=== PATIENT | female | born 1985 | race Asian ===

== ENCOUNTER 2020-08-14 23:56 | Emergency (ER) | payer OTHER ==
[2020-08-15] MEDS ORDERED: NORMAL SALINE 1000 ML 1,000 ML IV ONE (00:29)
[2020-08-15] MEDS ORDERED: ONDANSETRON HCL INJ/PF 4 MG/2 ML SDV IV ONE (00:29)
--- NOTE | 2020-08-15 00:34 | ER Document Report ---
ED Medical Screen (RME) - General Stated Complaint: VOMITTING CHEST PRESSURE Time Seen by Provider: 08/15/20 00:17 Primary Care Provider: JOHNNY ESPINAL DO [Primary Care Provider] - Follow up as needed Notes: Patient states she was eating dinner this evening and started to have difficulty breathing. Patient states she felt as though the food got stuck in her throat. Patient states that she forced herself to vomit by gagging herself. Patient states that she did vomit the food up and then 30 minutes later vomited again. Patient complains of some shortness of breath and dizziness at this time. Patient denies any cardiac history although reports a history of acid reflux and seasonal allergies. Patient has tolerated oral liquids since the episode where she felt like the food got stuck. I have greeted and performed a rapid initial assessment of this patient. A comprehensive ED assessment and evaluation of the patient, analysis of test results and completion of the medical decision making process will be conducted by additional ED providers. Physical Exam - Vital signs Vitals: Temp Pulse Resp BP Pulse Ox 97.9 F 99 20 125/65 96 08/15/20 00:19 08/15/20 00:19 08/15/20 00:19 08/15/20 00:19 08/15/20 00:19 - Respiratory Respiratory status: No respiratory distress Chest status: Tender Course - Vital Signs Vital signs: Temp Pulse Resp BP Pulse Ox 97.9 F 99 20 125/65 96 08/15/20 00:19 08/15/20 00:19 08/15/20 00:19 08/15/20 00:19 08/15/20 00:19 Doctor's Discharge - Discharge Referrals: JOHNNY ESPINAL DO [Primary Care Provider] - Follow up as needed
[2020-08-15 01:29] LABS: ABSOLUTE EOSINOPHILS # (AUTO) 0.1 10^3/uL (0.0-0.6); ABSOLUTE LYMPHOCYTES (AUTO) 0.9 10^3/uL (0.5-4.7); ABSOLUTE MONOCYTES (AUTO) 0.4 10^3/uL (0.1-1.4); BASOPHILS % (AUTO) 0.3 % (0-2); EOSINOPHILS % (AUTO) 1.2 % (0-6); HEMATOCRIT 38.2 % (36.0-47.0); HEMOGLOBIN 12.3 g/dL (12.0-15.5); LYMPHOCYTES % (AUTO) 8.2 % (13-45); MEAN CORPUSCULAR HEMOGLOBIN 24.8 pg (27.0-33.4); MEAN CORPUSCULAR HGB CONC 32.2 g/dL (32.0-36.0); MEAN CORPUSCULAR VOLUME 77 fl (80-97); MONOCYTES % (AUTO) 3.5 % (3-13); PLATELET COUNT 270 10^3/uL (150-450); RED BLOOD COUNT 4.97 10^6/uL (3.72-5.28); SEGMENTED NEUTROPHILS % (AUTO) 86.8 % (42-78); TOTAL CELLS COUNTED % (AUTO) 100 %; WHITE BLOOD COUNT 11.5 10^3/uL (4.0-10.5)
--- NOTE | 2020-08-15 01:41 | RADIOLOGY REPORT (SQ) ---
EXAM DESCRIPTION: X-ray, single view of the chest CLINICAL HISTORY: 35 years Female, cp, dizziness COMPARISON: None. FINDINGS: Lungs: Lungs are clear. No pneumonia or edema. No pneumothorax or pleural effusion. Mediastinum: Cardiac and mediastinal silhouette are normal. Bones: Osseous structures are normal. IMPRESSION: Unremarkable single view of the chest. No acute process.
[2020-08-15 01:49] LABS: ALBUMIN 4.4 g/dL (3.5-5.0); ALKALINE PHOSPHATASE 75 U/L (38-126); ANION GAP 10 (5-19); ASPARTATE AMINO TRANSFERASE 28 U/L (14-36); BILIRUBIN,DIRECT 0.1 mg/dL (0.0-0.4); BILIRUBIN,TOTAL 0.3 mg/dL (0.2-1.3); BLOOD UREA NITROGEN 13 mg/dL (7-20); CALCIUM 9.1 mg/dL (8.4-10.2); CARBON DIOXIDE 26 mmol/L (22-30); CHLORIDE 102 mmol/L (98-107); GLUCOSE 123 mg/dL (75-110); TOTAL PROTEIN 7.4 g/dL (6.3-8.2)
[2020-08-15 01:51] LABS: POTASSIUM 3.9 mmol/L (3.6-5.0)
[2020-08-15] MEDS ORDERED: METOCLOPRAMIDE HCL ORAL SOLN 10 MG/10 ML UDCUP PO ONE (03:39)
[2020-08-15] MEDS ORDERED: MAG HYDROX/AL HYDROX/SIMETH SUSP 30 ML UDCUP PO ONE (03:39)
[2020-08-15] MEDS ORDERED: LIDOCAINE 2% VISCOUS SOLN 15 ML UDCUP PO ONE (03:39)
--- NOTE | 2020-08-15 03:44 | ER Document Report ---
ED GI/ - General Chief Complaint: Abdominal Pain Stated Complaint: VOMITTING CHEST PRESSURE Time Seen by Provider: 08/15/20 00:17 Notes: Patient is a 35-year-old female that comes emergency department for chief complaint of an episode where she was eating and she felt the food got stuck, she states she had discomfort, she states that she felt like it was making her have a hard time breathing, she states that she put her finger down her throat and gagging herself, she states shortly after this she vomited. She states she vomited the food particles including sausage, shrimp, and rice. She states she vomited a lot of food and she is unsure if there was one specific food particle that caused it. She has been able to drink fluids since that time without any difficulty, she states that she still has the sensation that something is stuck in her throat but she denies any pain. She admits she has had problems like this that have been worsening for several months, she already has an endoscopy scheduled in a roughly a week with gastroenterology, she has a history of acid reflux that has been severe since her over the past year. She is not currently (10-month status post ). She denies any medical history otherwise. She denies smoking, alcohol, she reports moderate amount of caffeine. - Related Data Allergies/Adverse Reactions: No Known Allergies Allergy (Unverified 08/15/20 02:52) Home Medications: flonase, zyrtec Past Medical History - General Information source: Patient - Social History Smoking Status: Never Smoker Frequency of alcohol use: None Drug Abuse: None Lives with: Family Family History: Reviewed & Not Pertinent GI Medical History: Reports: Hx Gastroesophageal Reflux Disease Past Surgical History: Reports: Hx Section - Immunizations Immunizations up to date: Yes Hx Diphtheria, Pertussis, Tetanus Vaccination: Yes Review of Systems - Review of Systems Constitutional: No symptoms reported EENT: No symptoms reported Cardiovascular: No symptoms reported Respiratory: No symptoms reported Gastrointestinal: See HPI Genitourinary: No symptoms reported Female Genitourinary: No symptoms reported Musculoskeletal: No symptoms reported Skin: No symptoms reported Hematologic/Lymphatic: No symptoms reported Neurological/Psychological: No symptoms reported Physical Exam - Vital signs Vitals: Temp Pulse Resp BP Pulse Ox 97.9 F 99 20 125/65 96 08/15/20 00:19 08/15/20 00:19 08/15/20 00:19 08/15/20 00:19 08/15/20 00:19 - Notes Notes: GENERAL: Alert, interacts well. No acute distress. HEAD: Normocephalic, atraumatic. EYES: Pupils equal, round, and reactive to light. Extraocular movements intact. ENT: Oral mucosa moist, tongue midline. Oropharynx unremarkable. Airway patent. NECK: Full range of motion. Supple. Trachea midline. No lymphadenopathy. LUNGS: Clear to auscultation bilaterally, no wheezes, rales, or rhonchi. No respiratory distress. Non-tender chest wall. HEART: Regular rate and rhythm. No murmur ABDOMEN: Soft, non-tender. Non-distended. EXTREMITIES: Moves all 4 extremities spontaneously. No edema, normal radial and dorsalis pedis pulses bilaterally. No cyanosis. BACK: no cervical, thoracic, lumbar midline tenderness. No saddle anesthesia, normal distal neurovascular exam. NEUROLOGICAL: Alert and oriented x3. Normal speech. PSYCH: Normal affect, normal mood. SKIN: Warm, dry, normal turgor. No rashes or lesions noted. Course - Re-evaluation Re-evalutation: Patient with history very suggestive of food bolus/foreign body causing obstruc tion in the esophagus which patient then cleared. She drink fluids for me at bedside without any difficulty or any vomiting, she was then given GI cocktail which did significantly improve her symptoms. She has been able to tolerate p.o. otherwise as well without any difficulty. I do believe the patient cleared the obstruction completely based on her evaluation. I did review work-up from triage including chest x-ray, EKG, laboratory work-up and this is unremarkable with no concerning findings. Patient already has an endoscopy scheduled with gastroenterology, she is already prescribed medications for esophagitis/reflux which she has not started taking yet, however I discussed with her and she requested prescription for me to take as well, she was given Carafate. I discussed precautions, close follow-up, and return details at length. Patient states appreciation and agreement. Stable and well-appearing at the time of discharge. - Vital Signs Vital signs: Temp Pulse Resp BP Pulse Ox 98.0 F 86 16 108/60 97 08/15/20 05:47 08/15/20 05:47 08/15/20 05:47 08/15/20 05:47 08/15/20 05:47 - Laboratory Result Diagrams: 08/15/20 01:05 08/15/20 01:05 Laboratory results interpreted by me: 08/15/20 08/15/20 01:05 01:05 WBC 11.5 H MCV 77 L MCH 24.8 L RDW 16.0 H Lymph % (Auto) 8.2 L Absolute Neuts (auto) 10.0 H Seg Neutrophils % 86.8 H Glucose 123 H - EKG Interpretation by Me Additional EKG results interpreted by me: EKG shows sinus rhythm at a rate of 96, normal axis, QTC of 476, no T wave inversions or ST segment changes in consecutive leads Discharge - Discharge Clinical Impression: Esophageal abnormality Vomiting Qualifiers: Vomiting type: unspecified Vomiting Intractability: non-intractable Nausea pre sence: with nausea Qualified Code(s): R11.2 - Nausea with vomiting, unspecified Condition: Stable Disposition: HOME, SELF-CARE Additional Instructions: Your tests do not show any concerning findings tonight. Based on your evaluation I believe that you have abrasion/irritation/injury to the esophagus from the food but I do not believe that you have an obstruction at this time. I recommend the Carafate, bland foods, and close follow-up with your gastroenterology. Make sure that you cut up any foods that could get stuck. Avoid caffeine, alcohol, smoking, spicy food, NSAIDs. Come back if you are worse including if food becomes stuck and you cannot swallow, if pain becomes very severe, if you have repeated vomiting, or for any other concerning or worsening symptoms. Prescriptions: Sucralfate [Carafate 1 gm Tablet] 1 gm PO QID #20 tablet
[2020-08-15 05:48] VITALS: BP 108/60
--- NOTE | 2020-08-15 09:13 | EKG REPORT ---
SEVERITY:- BORDERLINE ECG - SINUS RHYTHM IVCD : Confirmed by: Santosh Martinez MD 15-Aug-2020 09:12:38
== END 2020-08-15 06:00 | disposition home or self-care (01) ==
LOC: ER 23:56
DX: K22.8 Other specified diseases of esophagus (principal); R11.2 Nausea with vomiting, unspecified; R10.9 Unspecified abdominal pain; R07.9 Chest pain, unspecified
CPT/HCPCS: 93005; 99285; 96361; 96374; 36415; 84703; 85025; 80053; 84484; 71045; 93010; J3490; J2405; J7030

== ENCOUNTER 2020-08-27 07:38 | Day surgery (SDC) | payer OTHER ==
[~2020-08-27 07:38] MED LIST: PROPOFOL INJ 200 MG/20 ML VIAL IV ONE
[2020-08-27 10:59] VITALS: BP 133/76
--- NOTE | 2020-08-27 11:43 | Operative Report ---
Operative Report DATE OF SURGERY: 08/27/20 Operative Report: The risk, benefits and alternatives of the procedure including the risks of bleeding, perforation requiring surgery have been explained to the patient in detail and informed consent has been obtained. The patient is placed in left, lateral decubital position. Timeout was called. Propofol medication is administered. Rectal examination is done which did not reveal any masses, tears or fissures. An Olympus videoscope was introduced into the patient's rectum. Scope was then carefully advanced all the way to the cecum. Cecum was identified by the usual anatomical landmarks including the ileocecal valve as well as the appendiceal office. Photodocumentation is obtained. Scope was then sequentially pulled back via the various segments of the colon including the ascending colon, hepatic flexure, transverse colon, splenic flexure, descending colon finding to the rectosigmoid portions of the colon. Retroflexion maneuver is performed. The risks benefits and alternatives of the procedure explained to the patient in detail and informed consent is obtained.A GIF Olympus video scope was inserted into the patient's mouth and hypopharynx, the esophagus is identified intubated and insufflated, the scope was then advanced through the esophagus stomach and duodenum, retroflexion maneuver is done ,the esophagus stomach and first and second portions of the duodenum examined PREOPERATIVE DIAGNOSIS: Change of bowel habits. Dysphagia POSTOPERATIVE DIAGNOSIS: Right colon inflammation status post biopsy. Normal terminal ileum. Mild internal hemorrhoids. Gastritis status post biopsy. Esophagitis status post biopsy with possible Schatzki's ring OPERATION: Colonoscopy with biopsy. EGD with biopsy SURGEON: KORINA MORRIS ANESTHESIA: LMAC TISSUE REMOVED OR ALTERED: As noted above. COMPLICATIONS: None. ESTIMATED BLOOD LOSS: None. INTRAOPERATIVE FINDINGS: As noted above. PROCEDURE: Patient tolerated the procedure well. No immediate postprocedure complications are noted. Patient is discharged in good condition. Discharge date 08/27/2020. Discharge diet: Regular. Discharge activity: Regular. 2 to 3-week follow-up to discuss findings. Patient is instructed to call the office or proceed to the emergency room should there be any further problems or questions. Wait on the pathology.
--- OUTSIDE RECORDS SUMMARY | 2020-08-28 14:57 | XMS REPORT ---
:1985 [facility] [place] [address] [place] [id number] Care Team Providers Name Role Phone Joy Attending Clinician Unavailable Hioe Attending Clinician Unavailable Rajeshoe Attending Clinician Unavailable Jacob Lr Attending Clinician Unavailable Allergies, Adverse Reactions, Alerts This patient has no known allergies or adverse reactions. Medications This patient has no known medications. Problems This patient has no known problems. Procedures Procedure Date / Time Performed Performing Clinician Devic e OFFICE/OUTPATIENT VISIT EST 2020-08-12 11:00:00 OFFICE/OUTPATIENT VISIT EST 2019-12-24 16:00:00 OFFICE/OUTPATIENT VISIT EST 2019-02-13 09:30:00 OFFICE/OUTPATIENT VISIT EST 2018-05-01 11:30:00 OFFICE/OUTPATIENT VISIT EST 2017-11-07 10:45:00 PREV VISIT EST AGE 18-39 2017-02-15 09:45:00 Results Test Description Test Time Test Comments Text Results Atomic Results Result Comments TSH 2020-08-12 00:00:00 1.58 COMPREHENSIVE METABOLIC PANEL 2020-08-12 00:00:00 Test Item Value Reference Range Comments CALCIUM (test code = 60896541) 9.4 mg/dL 8.6-10.2 ALKALINE PHOSPHATASE (test code = 19753246) 54 U/L 31-1 25 ALBUMIN/GLOBULIN RATIO (test code = 33297342) 1.6 (calc) 1. 0-2.5 eGFR NON-AFR. NORWEGIAN (test code = 89966175) 113 mL/min/1.73m2 > OR = 60 GLOBULIN (test code = 60718866) 2.8 g/dL (calc) 1.9-3.7 CHLORIDE (test code = 63930751) 106 mmol/L 98-110 BILIRUBIN, TOTAL (test code = 62723457) 0.4 mg/dL 0.2-1.2 BUN/CREATININE RATIO (test code = 23917237) NOT APPLICABLE (calc ) 6-22 CARBON DIOXIDE (test code = 19163280) 26 mmol/L 20-32 SODIUM (test code = 32732813) 140 mmol/L 135-146 PROTEIN, TOTAL (test code = 13082687) 7.2 g/dL 6.1-8.1 ALBUMIN (test code = 73651905) 4.4 g/dL 3.6-5.1 UREA NITROGEN (BUN) (test code = 04448464) 11 mg/dL 7-25 CREATININE (test code = 09889630) 0.66 mg/dL 0.50-1.10 eGFR (test code = 05951353) 131 mL/min/1.73m2 > OR = 60 GLUCOSE (test code = 39600839) 99 mg/dL 65-99 POTASSIUM (test code = 28250549) 4.1 mmol/L 3.5-5.3 ALT (test code = 13487400) 12 U/L 6-29 AST (test code = 44870455) 17 U/L 10-30 CBC (INCLUDES DIFF/PLT)2020-08-12 00:00:00 Test Item Value Reference Range Comments MONOCYTES (test code = 26201702) 6.1 % ABSOLUTE LYMPHOCYTES (test code = 28545173) 1950 cells/uL 850- 3900 HEMATOCRIT (test code = 44565696) 41.6 % 35.0-45.0 ABSOLUTE MONOCYTES (test code = 12627268) 409 cells/uL 200-95 0 PLATELET COUNT (test code = 99729480) 318 Thousand/uL 140-400 EOSINOPHILS (test code = 42618453) 3.7 % ABSOLUTE EOSINOPHILS (test code = 40425985) 248 cells/uL 15-5 00 ABSOLUTE BASOPHILS (test code = 30239099) 20 cells/uL 0-200 WHITE BLOOD CELL COUNT (test code = 6.7 Thousand/uL 3.8-10.8 62329348) BASOPHILS (test code = 32198159) 0.3 % MCH (test code = 20274343) 24.1 pg 27.0-33.0 RDW (test code = 55215774) 14.4 % 11.0-15.0 RED BLOOD CELL COUNT (test code = 83776315) 5.26 Million/uL 3.80 -5.10 LYMPHOCYTES (test code = 99259413) 29.1 % ABSOLUTE NEUTROPHILS (test code = 26065314) 4074 cells/uL 1500 -7800 NEUTROPHILS (test code = 99056393) 60.8 % HEMOGLOBIN (test code = 56542136) 12.7 g/dL 11.7-15.5 MCHC (test code = 91372898) 30.5 g/dL 32.0-36.0 MPV (test code = 60891488) 11.0 fL 7.5-12.5 MCV (test code = 45549718) 79.1 fL 80.0-100.0 TISSUE [id number] 11:03:00 Test Item Value Reference Range Comments A DIAGNOSIS (test code = Benign intradermal nevus. See 40070418) Report Notes. CLINICAL INFORMATION (test D22.9, melanocytic nevi code = 93499795) A SOURCE (test code = Skin Biopsy, right upper 03725596) abdomen Urine \S\2019-02-15 08:15:00 Test Item Value Reference Range Comments Urine (test code = URINEPREG) positive N/A CMP with Estimated [id number] 09:47:00 Test Item Value Reference Range Comments Calcium (test code = 621698) 9.2 mg/dL 8.6-10.2 Est GFR, NonAfrican Iraqi (test code = 517865) >89 mL/min >=60 Total Protein (test code = 074057) 7.2 g/dL 6.1-8.1 Est GFR, (test code = 575787) >89 mL/min > =60 Bilirubin, Total (test code = 936246) 0.4 mg/dL 0.2-1.2 Albumin (test code = 563275) 4.4 g/dL 3.6-5.1 Alkaline Phosphatase (test code = 097637) 38 U/L 33-115 ALT/SGPT (test code = 317378) 16 U/L 6-29 AST/SGOT (test code = 858409) 21 U/L 10-30 Pap, TP Imaging w/ [id number] 10:56:00 Test Item Value Reference Range Comments Source (test code = 417973) Cervical Source: (test code = 251069) Cervical HPV, High Risk (test code = 607170) Not Detected Previous Diagnosis: (test code = 979416) Z01.419 Clinical Information: (test code = 207519) PAP LMP: (test code = 489588) 52431018 Number of Slides/Vials: (test code = 1 Vial Submitted 766295) Assessments Condition Name Status Diagnosis Date Treating Clinici an Other constipation Active Excessive and frequent menstruation with Active regular cycle Dysphagia, pharyngeal phase Active Other fatigue Active Oth allergy status, oth than to drugs and Active biolg substances Allergic rhinitis due to pollen Active Allergic rhinitis due to animal (cat) (dog) Active hair and dander Body mass index (BMI) 24.0-24.9, adult Active Allergic rhinitis due to pollen Active Oth allergy status, oth than to drugs and Active biolg substances Allergic rhinitis due to animal (cat) (dog) Active hair and dander Recurrent oral aphthae Active Oth allergy status, oth than to drugs and Active biolg substances Allergic rhinitis due to pollen Active Allergic rhinitis due to animal (cat) (dog) Active hair and dander Body mass index (BMI) 20.0-20.9, adult Active Allergic rhinitis, unspecified Active Postviral fatigue syndrome Active Tension-type headache, unspecified, not Active intractable Body mass index (BMI) 20.0-20.9, adult Active Encntr for teletype operator exam (general) (routine) w/o Active abn findings Encounter for screening for lipoid disorders Active Encounter for screening for diabetes Active mellitus Encounter for immunization Active Encounters Start End Encounter Admission Attending Care Care Encounter Date/Time Date/Time Type Type Clinicians Facility Department ID 2020-08-12 2020-08-12 Outpatient Joy [facility] Becky [id number] 11:00:00 11:00:00 [facility] [id number] and [id number] Multispecialty [id number] Clini 2019-12-24 2019-12-24 Outpatient Alexx clary [facility] [id number] 16:00:00 16:00:00 Children [id number] s [id number] and [id number] Mult[facility]ialty Clinic, 2019-02-13 2019-02-13 Outpatient Alexx [facility] [id number] 09:30:00 09:30:00 Children [id number] s [id number] and [id number] [facility], 2018-05-01 2018-05-01 Outpatient Alexx clary [facility] [id number] 11:30:00 11:30:00 Children [id number] s [id number] [id number] 2017-11-07 Outpatient Alexx clary [facility] [id number] 10:45:00 10:45:00 Children [id number] s [id number] [facility] [id number] [facility]15 2017-02-15 [facility] [id number] 09:45:00 09:45:00 Adeline, Children [id number] Stuart s [id number] and [id number] [facility] Social History This patient has no known social history. Vital Signs This patient has no known vital signs.
== END 2020-08-27 11:20 | disposition home or self-care (01) ==
LOC: END 07:38
PROVIDERS: ATTEND Internal Medicine Gastroenterology
DX: K29.50 Unspecified chronic gastritis without bleeding (principal); K21.00 Gastro-esophageal reflux disease with esophagitis, without bleeding; K52.9 Noninfective gastroenteritis and colitis, unspecified; K64.8 Other hemorrhoids; Z03.818 Encounter for observation for suspected exposure to other biological agents ruled out; K59.00 Constipation, unspecified; J30.9 Allergic rhinitis, unspecified; Z79.899 Other long term (current) drug therapy
CPT/HCPCS: 43239; 45380; 87635; 88342 ×2; 88305 ×2; 00813; J2704; C9803; 813